=== PATIENT | male | born 1970 | race Caucasian/White ===

== ENCOUNTER → 2016-11-06 | Outpatient (CLI) | payer OTHER ==
[~2016-11-06] MED LIST: "\\\"PREP SPRAY\\\"-TIN4 OZ"; ALDACTONE50 M1 PO; AMLODIPINE BESY10 MG PO; ARTHRITIS PAIN650 M1 PO; ASACOL HD800 MG PO; ASPIRIN EC81 MG PO; ATIVAN 1 MG1 MG PO; ATROVENT I0.5 MG/2.5 INH; B COMPLETE1 EACH; B COMPLETE1 EACH PO; B COMPLEX1 EACH PO; BUMEX; BUMEX1 MG PO; CATAPRES0.1 MG PO; COREG 3.1253.125 MG PO; COREG3.125 MG PO; COUMADIN ** IA3 MG PO; COUMADIN **IA1 MG PO; COUMADIN1 MG PO; COUMADIN2 MG PO; COUMADIN2.5 MG PO; COUMADIN5 MG PO; DELTASONE; DELTASONE20 MG PO; DELZICOL400 MG PO; DILAUDID0.5 MG/0.5 IV; DURAGESIC 25MC25 MCG TRANS; ECOTRIN81 MG PO; FLAGYL500 M1 PO; FLORASTOR250 MG PO; FOLIC ACID1 MG PO; HYOSCYAMINE; K-TAB OR KLOR-10 MEQ PO; KLOR-CON25 MEQ PO; LASIX20 MG PO; LEVAQUIN 750 M750 MG PO; LEVAQUIN750 MG PO; LEVSIN-SL0.125 MG SL; LEVSIN/SL0.125 MG SL; LEXAPRO10 MG PO; LEXAPRO20 MG PO; LIDOCAINE 1% MD20 M1 IDER; LISINOPRIL20 MG PO; LOVENOX 10100 MG/1 M SUB-Q; LOVENOX 8080 MG/0.8 SUB-Q; LOVENOX150 MG/1 M SUB-Q; MAG-OX-400(241400 MG PO; NEUTRA-PHOS (PHO1 EA PO; NICODERM/HABITR21 MG; NICODERM/HABITR21 MG TRANS; NORVASC10 MG PO; NUCYNTA50 MG PO; ONE DAILY1 EACH PO; PENTASA500 MG PO; PEPCID20 MG PO; POTASSIUM CHLO20 ME1 PO; POTASSIUM CHLORIDE; PRINIVIL20 MG PO; PROTONIX40 MG PO; PROVENTIL2.5 MG/0.5 INH; REMERON15 M2 PO; REMERON30 MG PO; THERA-VITE W/ B1 TAB PO; THERAGRAN-M1 TAB PO; THIAMINE HCL100 MG PO; TROSPIUM CHLORI60 MG PO; TYLENOL EXTRA500 MG PO; TYLENOL325 MG PO; ULTRAM50 MG PO; VESICARE10 MG PO; VITAMIN B-1100 M1 PO; ZESTRIL40 MG PO; [UNRECOGNIZED DRUG - OTHER]; [UNRECOGNIZED DRUG - OTHER] PO; [UNRECOGNIZED DRUG - OTHER] PO
== END | disposition disaster alternative care site (69) ==
LOC: GAMB 19:53
DX: F10.229 Alcohol dependence with intoxication, unspecified (principal); R10.9 Unspecified abdominal pain; Z79.899 Other long term (current) drug therapy
CPT/HCPCS: A0425; A0427; J2405; J7030

== ENCOUNTER 2016-11-08 23:14 | Inpatient (IN) | payer OTHER ==
[~2016-11-08] VITALS: Ht 175.3 cm; Wt 93.0 kg
--- NOTE | ~2016-11-08 | CON ---
PATIENT'S NAME: RENE GUERRA [facility] AGE: 46 Y [address] ROOM: [place] [address] LOCATION: [facility] ADMIT DATE: 11/09/2016 Consultation DISCHARGE DATE: FAMILY PHYSICIAN: GENE GARCIA MD ATTENDING PHYSICIAN: KELLI DEL TORO DATE OF CONSULTATION: 11/09/2016 HISTORY OF PRESENT ILLNESS: Rene Guerra is a 46-year-old male who was admitted through emergency room early this morning with history of nausea, vomiting, with coffee-grounds emesis in association with coagulopathy with INR of 5.7. The patient has had history of alcohol abuse and was intoxicated on admission with high serum alcohol levels and INR of 5.7, his hematocrit did drop with hydration and his INR is being corrected. He complains of diffuse abdominal pain and a CT scan of the abdomen was done which is pending. His lipase however was found to be in the 700 range. PAST MEDICAL HISTORY: 1. Alcohol abuse. 2. Previous history of GI bleed and ulcers. 3. Chronic Coumadin therapy for factor V Leiden mutation. 4. History of ulcerative colitis, requiring colectomy and ostomy. ALLERGIES: NONE KNOWN. MEDICATIONS: As noted MAR. SOCIAL HISTORY: Nicotine and alcohol abuse. PHYSICAL EXAMINATION: GENERAL: Middle-aged dishevelled man, in no acute distress. VITAL SIGNS: Afebrile. Vital signs are stable. HEENT: Nonicteric sclerae. Pupils round and reactive. NECK: Supple. CHEST: Clear to auscultation. HEART: S1, S2 normal. ABDOMEN: Soft and nondistended with ostomy in the right upper quadrant. There is also suprapubic catheter. There is mild diffuse tenderness and bowel sounds are absent. EXTREMITIES: No edema. NEUROLOGIC: Awake, alert, appropriate without any focal deficits. PATIENT'S NAME: RENE GUERRA [facility] AGE: 46 Y [address] ROOM: [place] [address] LOCATION: [facility] ADMIT DATE: 11/09/2016 Consultation DISCHARGE DATE: FAMILY PHYSICIAN: GENE GARCIA MD ATTENDING PHYSICIAN: KELLI DEL TORO LABORATORY DATA: Labs are reviewed, showing white cell count of 6.7; hemoglobin 10.2, drifting down; platelets 177,000. Lipase of 712. CT scan of the abdomen pending. ASSESSMENT AND PLAN: A 46-year-old male, presenting with coffee-grounds emesis in the setting of alcohol abuse and associated pancreatitis. The patient does have significant coagulopathy with his Coumadin intake and that needs to be corrected prior to performing any invasive procedures. We will proceed with upper endoscopy as soon as his INR is 1.5 or less. In the interim, he is protected with proton pump inhibitor. Pancreatitis is likely to resolve and does not seem to be severe as per criteria, given sometime. CT scan is pending. Further recommendations as per his clinical course. Thank you for this consult. SAMMY GAMEZ MD AM/katey /[id number] d: 11/09/16 1343 t: 11/11/16 0801, CONSULTATION REPORT
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
--- NOTE | ~2016-11-08 | DS ---
PATIENT'S NAME: RENE GUERRA [facility] AGE: 46 Y [address] [place] [facility] [place], [place] [address] LOCATION: [facility] ADMIT DATE: 11/09/2016 Discharge Summary DISCHARGE DATE: 11/12/2016 FAMILY PHYSICIAN: Jaxson Santiago MD ATTENDING PHYSICIAN: Santana Turk PRIMARY DIAGNOSES: 1. Alcoholic gastritis. 2. Acute blood loss anemia. 3. Alcoholic dependence with intoxication. 4. Supratherapeutic INR. 5. Alcoholic pancreatitis. 6. Factor V Leiden. 7. Ulcerative colitis. 8. Catheter-associated urinary tract infection, present on admission. PRINCIPAL PROCEDURES: Done for the patient, please note, he was transfused 2 units of fresh frozen plasma. LABORATORY DATA: On admission, WBC 7.5, WBC prior to discharge was 3.8; H and H on admission were 8.1 and 23.8, prior to discharge was 8.3 and 24.7, platelet was 149 on discharge. On admission, sodium was 145, prior to discharge was 145, was stable throughout hospital stay; creatinine was 0.6 and was also stable throughout the hospital stay at 0.7; BUN was 10, prior to discharge was 3; glucose was 62, prior to discharge was 87; bicarb was 19 on admission, prior to discharge was ; potassium on admission was 3.7, lowest level obtained was 2.9, was repleted, prior to discharge was 3.7. Phosphorus on admission was 1.3, was repleted, prior to discharge was 2.9. Magnesium on admission was 1.6, was repleted, and prior to discharge was 1.8. Hemoglobin A1c was 5.5. INR on admission was 5.7, prior to discharge was 1.1. UA on admission: Leukocytes were 500, nitrite was positive, wbc 50-100, bacteria was many. Lipase on admission was 712, prior to discharge was 459. Alcohol level 0.32. CRP was 0.35. Drug screen was negative. Procalcitonin was 0.06. Microbiology: Urine from suprapubic catheter was greater than 100,000 Enterobacter and also greater than 100,000 Enterococcus faecalis. IMAGING DATA: CT of abdomen and pelvis, marked fatty infiltration of the liver. Intact appearance of suprapubic Roach catheter, IVC filter, and left lower quadrant ostomy. Interval resolution of soft tissue density material adjacent to the spleen since the previous exam. HOSPITAL COURSE: For history of present illness, please take a look at the H and P, which was done by Dr. Turk. The patient was admitted to Neurotrauma Unit, was managed as a case of acute pancreatitis with possibly gastrointestinal bleed, and the patient was also managed as per the alcohol PATIENT'S NAME: RENE GUERRA [facility] AGE: 46 Y [address] ROOM: [address] [address] LOCATION: [facility] ADMIT DATE: 11/09/2016 Discharge Summary DISCHARGE DATE: 11/12/2016 FAMILY PHYSICIAN: Jaxson Santiago MD ATTENDING PHYSICIAN: Santana Turk detox pathway given his alcohol dependence and presented with alcoholic intoxication. He did not have any active alcohol withdrawal throughout his hospital stay. He did also get a GI consult, and after the patient was evaluated by GI, they recommended an EGD. Given his presentation with supratherapeutic INR, he did also is transfused with 2 units of fresh frozen plasma to reverse his INR, and by the next day of his hospital stay, he was taken into the procedure suite and had an EGD done, which essentially revealed gastritis. So his symptom of melenic stool was probably secondary to alcoholic gastritis, presenting with melena stool. From the first day of his hospital stay, he was started on Protonix drip, which he continued up until the point of discharge. His urine culture ultimately came back positive for Enterococcus as well as Enterobacter as well as Enterococcus faecalis, and he was discharged on p.o. antibiotics for a total of 10 days given his catheter- associated urinary tract infection, which is present on admission. The patient continued to make good clinical progress, and his abdominal pain was controlled with his regular home dose of pain medication, and on the day of discharge, he was stable, vital signs were stable, and he was discharged home. On discharge, the patient was also instructed that he needed to restart his Coumadin and which was going to be bridged with Lovenox, which he is used to given his history of factor V Leiden. MEDICATIONS ON DISCHARGE: 1. Multivitamin 1 tablet p.o. daily. 2. Folic acid 1 mg p.o. daily. 3. Thiamine 100 mg p.o. daily. 4. Tramadol 100 mg p.o. q.4 hours p.r.n. 5. Coumadin 5 mg p.o. daily. 6. Asacol 800 mg p.o. 3 times daily. 7. Coreg 3.125 mg p.o. twice daily. 8. Levaquin 750 mg p.o. daily for 5 days. 9. Florastor 250 mg twice daily for 5 days. 10. Lovenox 90 mg daily subcu, stop if INR is greater than or equal to 1.9. MD JOSIE BONILLA/sherril /[id number] d: 11/12/16 2355 t: 11/17/16 1354, DISCHARGE SUMMARY
--- NOTE | ~2016-11-08 | ER ---
PATIENT'S NAME: RENE GUERRA [facility] AGE: 46 Y [address] ROOM: [place] [address] LOCATION: [facility] ADMIT DATE: 11/08/2016 ER/Outpatient Report DISCHARGE DATE: FAMILY PHYSICIAN: PHYSICIAN, NO ATTENDING PHYSICIAN: Ramana Martinez Admission date and time are documented on the medical record. I saw the patient at 2325 hours. CHIEF COMPLAINT: Abdominal pain, vomiting blood, and alcohol intoxication. HISTORY OF PRESENT ILLNESS: This patient is a 46-year-old male brought to the emergency room by paramedics via ambulance for evaluation. The patient complains of generalized abdominal pain. He is spitting up, coughing up, or vomiting blood. He is acutely intoxicated with alcohol and does have a chronic alcohol abuse problem along with the chronic tobacco abuse problem. He has had illicit drug abuse problems by history. The patient has a history of chronic abdominal pain. He has had a history of ulcerative colitis and is postop colectomy with an ostomy bag. The patient has a suprapubic catheter. 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 The patient has a history of factor Leiden deficiency and chronically anticoagulated with Coumadin. The patient has a long history of depression, hypertension, and gastroesophageal reflux. He has had a past history of GI bleed, DVT, and pulmonary embolism. He has an indwelling IVC filter. No fall or trauma. No recent colds, coughs, flus, fever, chills, or sweats. Denies being lightheaded or dizzy. He has had no syncope. No headache, eyes, ears, nose, throat, neck, or spine pain. Little bit of chest pain, but no shortness of breath. Denies nausea, vomiting, or diarrhea. No joint or muscle swelling, redness, or pain. No skin eruptions or rash. History of depression. No history of TIA, CVA, or seizure disorder. No endocrine problems. HOME MEDICATIONS: See attached medication list. ALLERGIES: NONE. SOCIAL HISTORY: The patient smokes a pack of cigarettes per day. Heavy drinker of alcohol daily. Past history of cocaine use. PAST MEDICAL HISTORY: PATIENT'S NAME: RENE GUERRA [facility] AGE: 46 Y [address] ROOM: [place], [place] [address] LOCATION: ED ADMIT DATE: 11/08/2016 ER/Outpatient Report DISCHARGE DATE: FAMILY PHYSICIAN: PHYSICIAN, NO ATTENDING PHYSICIAN: Ramana Martinez Gastroesophageal reflux, depression, hypertension, upper GI bleed, factor V Leiden deficiency, DVT with PE, chronic abdominal pain, ulcerative colitis, penile gangrene, alcohol and tobacco abuse, history of illicit drug abuse, and chronic anticoagulation with Coumadin. OPERATIONS: Esophagogastroduodenoscopy, colonoscopy, cystoscopy, IVC filter placement, partial penectomy, suprapubic catheter placement, colectomy with ostomy formation, and tonsillectomy. REVIEW OF SYSTEMS: All systems reviewed by me are negative with the exception of those discussed in the history of present illness. PHYSICAL EXAMINATION: VITAL SIGNS: Temperature 99.1, pulse 114, regular, respirations 18, blood pressure 124/82, and O2 sat on room air is 94%. HEAD: Normocephalic. EYES: Extraocular muscles intact. PERRL. EARS: Clear TMs bilaterally. NOSE AND THROAT: Clear. Breath smells of alcoholic beverage. Mucous membranes a little dry. NECK: Negative. SPINE: Negative. LUNGS: Clear. No rales, rhonchi, or wheezes. HEART: Tachy, regular. Pulses palpable. ABDOMEN: Diffuse tenderness. No distention. Bowel tones hypoactive. No organomegaly or abnormal mass palpable. Colostomy is functioning. He had a little bit of bleeding from his suprapubic catheter site. EXTREMITIES: He has multiple bruising. Range of motion full. No deformity. No cyanosis. No pitting peripheral edema. NEURO: The patient is intoxicated. No lateralizing changes. SKIN: Multiple bruising. No abrasions or lacerations. IMAGING DATA: The patient was started on IV banana bag followed by 1 L of normal saline bolus then 150 mL an hour. I did give him IV Protonix 40 mg, IV fentanyl 50 mcg, IV Zofran 4 mg here in the emergency department. EKG showed sinus tach. No acute ST-elevation, ischemic change, or arrhythmia. Chest x-ray showed no acute infiltrate or changes. We will review x-ray with the radiologist. LABORATORY DATA: CMS was normal except for a slightly elevated sodium of 146, low potassium of 3.2, elevated anion gap of 21.2, low calcium of 8.1, and elevated AST of 90. Medical blood alcohol was elevated at 0.382. Amylase was normal at 63. PATIENT'S NAME: RENE GUERRA [facility] AGE: 46 Y [address] ROOM: [place], [place] [address] LOCATION: [facility] ADMIT DATE: 11/08/2016 ER/Outpatient Report DISCHARGE DATE: FAMILY PHYSICIAN: PHYSICIAN, NO ATTENDING PHYSICIAN: Ramana Martinez Lipase was elevated 712. CPK was elevated 589. Aapta-bn-ctuo cardiac enzymes were normal. CRP was 0.35. Procalcitonin was 0.06. White count 6700, 59 segs, 36 lymphs, 3 monos, 1 baso, hemoglobin is 10.2 with hematocrit 29.9, and platelet count 177,000. PTT was 64, pro-time is 17.2 with an INR of 5.7. Lactate was 5.4. Urinalysis is pending. Urine culture was obtained. Blood cultures x2 obtained. All results of the cultures of the blood and urine are pending. IMPRESSION: 1. Diffuse abdominal pain, suspect pancreatitis. The patient does have a history of ulcerative colitis. He had a colectomy with ostomy bag with ostomy formation. The patient's amylase was normal, but lipase was elevated at 712. 2. Coughing up blood. The patient is chronically anticoagulated with Coumadin. His pro-time was elevated at 17.2 with elevated INR of 5.7. 3. Acute alcohol intoxication and alcohol abuse with a medical blood alcohol of 0.382. The patient is a chronic alcoholic. 4. Chronic tobacco abuse. 5. History of deep vein thrombosis, pulmonary embolism, with factor V Leiden deficiency. 6. Hypertension. 7. Depression. 8. History of penile gangrene with partial penectomy and suprapubic cystostomy placement. PLAN: Discussed the patient with Dr. Turk, hospitalist. The patient will be admitted to PCU telemetry for further evaluation and treatment. I did give the patient 5 mg of vitamin K orally in the emergency department along with fluids, Protonix, fentanyl, and Zofran. MD MIREYA ALEXANDER/modl /[id number] d: 11/09/16 014 t: 11/09/16 180, OUTPATIENT REPORT
[~2016-11-08 23:14] MED LIST changes: -CATAPRES0.1 MG PO; -COREG 3.1253.125 MG PO; -COUMADIN **IA1 MG PO; -DURAGESIC 25MC25 MCG TRANS; -LEVAQUIN750 MG PO; -LEVSIN/SL0.125 MG SL; -LOVENOX 10100 MG/1 M SUB-Q; -PENTASA500 MG PO; -THERAGRAN-M1 TAB PO; -TROSPIUM CHLORI60 MG PO
[2016-11-09 00:04] LABS: BASOPHIL # 0.1 K/uL (0.0-0.2); BASOPHIL % 0.8 %; HEMATOCRIT 29.9 % (37.0-53.0); HEMOGLOBIN 10.2 g/dL (12.0-17.0); IMMATURE GRANULOCYTE # 0.1 K/uL (0.0-0.3); IMMATURE GRANULOCYTE % 0.9 %; LYMPHOCYTE # 2.4 K/uL (0.8-4.0); LYMPHOCYTE % 35.8 %; MCH 30.9 pg (27.0-34.0); MCHC 34.1 gm/dL (32.0-36.5); MCV 90.6 fl (83.0-98.0); MONOCYTE # 0.2 K/uL (0.0-1.0); MONOCYTE % 3.2 %; MPV 9.5 fl (9.4-12.4); NEUTROPHIL % 59.3 %; NRBC % 0.3 /100WBC (0-0.00); PLATELET COUNT 177 K/uL (150-450); RDW-CV 13.1 % (11.9-14.6); WBC 6.7 K/uL (4.0-11.0)
[2016-11-09 00:20] LABS: PROTIME 70.2 SECONDS (9.6-11.1); PTT 64 SECONDS (25-32)
[2016-11-09 00:24] LABS: ALBUMIN 3.4 gm/dL (3.5-5.0); ALK PHOS 65 IU/L (33-138); ALT 48 IU/L (12-78); AST 90 IU/L (10-40); BLOOD UREA NITROGEN 11 mg/dL (6-24); CALCIUM 8.1 mg/dL (8.5-10.5); CHLORIDE 105 mMol/L (96-110); CO2 23 mMol/L (22-32); CPK 589 IU/L (35-332); CREATININE 0.8 mg/dL (0.6-1.3); ESTIMATED GFR (MDRD EQUATION) > 60; POTASSIUM 3.2 mMol/L (3.7-5.1); TOTAL BILIRUBIN 0.4 mg/dL (0.0-1.5); TOTAL PROTEIN 6.8 g/dL (6.0-8.4)
[2016-11-09 00:25] LABS: INR - (THERAPEUTIC) 5.7 (0.9-1.1)
[2016-11-09 00:26] LABS: ANION GAP 21.2 (10.0-19.0); SODIUM 146 mMol/L (135-145)
[2016-11-09 00:58] LABS: BILIRUBIN URINE NEGATIVE (NEGATIVE); BLOOD URINE 250 /UL (NEGATIVE); GLUCOSE URINE NEGATIVE (NEGATIVE); KETONE URINE 150 mg/dL (NEGATIVE); LEUKOCYTES URINE 500 /UL (NEGATIVE); NITRITE URINE POSITIVE (NEGATIVE); PROTEIN URINE 100 mg/dL (NEGATIVE); SPEC GRAVITY URINE 1.015 (1.003-1.035); UROBILINOGEN URINE 1 mg/dL (NORMAL)
[2016-11-09 01:00] LABS: COLOR URINE BROWN (YELLOW); TURBIDITY URINE 4+ (CLEAR)
[2016-11-09 01:12] LABS: BACTERIA URINE MANY (NEGATIVE); RBC URINE PACKED FIELD #/HPF (NEGATIVE); WBC URINE 50-100 #/HPF (NEGATIVE)
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
--- NOTE | 2016-11-09 05:10 | NUR ---
Patient arrived on floor by cart from ER at 0205. Pt had came into the ER by ambulane due to abdominal pain. He was spitting up some blood at time of arrival and intoxicated with alcohol. Pt has history of chronic alcohol abuse states that he doesn't know how much he drinks a day but alot probably more than a pack. Pt has a history of ulcerative colitis and has a colostomy. 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 Patient was given vitamin K in ER due to INR pt on blood thinners at home due to history of DVTs. Pt gave banana bag and 1L of NS in ER. IV to L) AC placed in ER. Patient rating pain at 10/10 on arrival to floor morphine given. Waiting for MD to see for further orders.
[2016-11-09 08:16] LABS: BARBITURATE NEGATIVE (NEGATIVE); COCAINE NEGATIVE (NEGATIVE); OPIATES NEGATIVE (NEGATIVE)
[2016-11-09 08:17] LABS: AMPHETAMINE NEGATIVE (NEGATIVE)
[2016-11-09 08:30] LABS: BASOPHIL % 0.4 %; EOSINOPHIL % 0.3 %; HEMOGLOBIN 8.1 g/dL (12.0-17.0); IMMATURE GRANULOCYTE # 0.1 K/uL (0.0-0.3); IMMATURE GRANULOCYTE % 0.9 %; LYMPHOCYTE # 2.5 K/uL (0.8-4.0); LYMPHOCYTE % 32.8 %; MCH 31.4 pg (27.0-34.0); MCV 92.2 fl (83.0-98.0); MONOCYTE # 0.4 K/uL (0.0-1.0); MONOCYTE % 4.9 %; MPV 9.6 fl (9.4-12.4); NEUTROPHIL # (ANC) 4.5 K/uL (1.4-9.0); NEUTROPHIL % 60.7 %; NRBC % 0 /100WBC (0-0.00); RBC 2.58 M/uL (4.00-6.00); RDW-CV 13.3 % (11.9-14.6); WBC 7.5 K/uL (4.0-11.0)
[2016-11-09 08:31] LABS: HEMATOCRIT 23.8 % (37.0-53.0); PLATELET COUNT 139 K/uL (150-450)
[2016-11-09 08:39] LABS: INR - (THERAPEUTIC) 2.9 (0.9-1.1); PROTIME 33.4 SECONDS (9.6-11.1); PTT 45 SECONDS (25-32)
[2016-11-09 08:49] LABS: ALK PHOS 55 IU/L (33-138); ALT 36 IU/L (12-78); ANION GAP 20.7 (10.0-19.0); AST 71 IU/L (10-40); BLOOD UREA NITROGEN 10 mg/dL (6-24); CHLORIDE 109 mMol/L (96-110); CO2 19 mMol/L (22-32); CREATININE 0.6 mg/dL (0.6-1.3); ESTIMATED GFR (MDRD EQUATION) > 60; MAGNESIUM 1.6 mg/dL (1.3-2.6); POTASSIUM 3.7 mMol/L (3.7-5.1); SODIUM 145 mMol/L (135-145); TOTAL PROTEIN 5.7 g/dL (6.0-8.4)
[2016-11-09 08:55] LABS: CALCIUM 7.2 mg/dL (8.5-10.5); PHOSPHORUS 1.3 mg/dL (2.5-4.9); TOTAL BILIRUBIN 0.5 mg/dL (0.0-1.5)
[2016-11-09] MEDS ORDERED: THERAGRAN-M1 TAB PO (10:34)
[2016-11-09] MEDS ORDERED: LEVSIN/SL0.125 MG SL (10:35)
[2016-11-09 12:34] LABS: HEMATOCRIT 23.6 % (37.0-53.0)
[2016-11-09 12:38] LABS: HEMOGLOBIN 7.9 g/dL (12.0-17.0)
[2016-11-09 17:21] LABS: INR - (THERAPEUTIC) 1.4 (0.9-1.1); PROTIME 14.7 SECONDS (9.6-11.1)
--- NOTE | 2016-11-09 19:22 | NUR ---
Significant Event: Patient alert and oriented x3, forgetful at times and asks repetitive questions. Patient was reporting severe abdominal pain throughout morning, doctor notified multiple times. Morphine, fentanyl and dilaudid given with no relief noted. This afternoon patient became increasingly anxious and jittery, ativan given for possible detoxing. Hypertensive, lopressor given with relief noted. All other VSS on 2L O2. EtCO2 monitor ordered and on. Suprapubic catheter patent, cornelius urine noted. Colostomy to lower left abdomen, black stool noted. Patient has extensive bruising throughout body. Given 2 units of FFP today due to high INR. Last INR was 1.4. IV to L) AC infusing D5 1/2 NS at 150 mL/hr and protonix gtt at 10 mL/hr. IV to L) upper arm, saline locked. Follow up: VS q 4 hours. Up with assistance. Clear liquid diet, NPO after midnight for EGD tomorrow. H&H q 4 hours.
[2016-11-09 20:13] LABS: HEMATOCRIT 21.6 % (37.0-53.0)
[2016-11-09 20:14] LABS: HEMOGLOBIN 7.4 g/dL (12.0-17.0)
[2016-11-10 01:56] LABS: HEMATOCRIT 22.6 % (37.0-53.0)
[2016-11-10 01:58] LABS: HEMOGLOBIN 7.7 g/dL (12.0-17.0)
--- NOTE | 2016-11-10 04:35 | NUR ---
Significant Event: A&Ox3. Forgetful at times. Moves all extremities spontaneously. Moderate strength. Lopressor to be given if SBP >150. Given x1 during the night. On tele runs tachy at times. 2L of O2 NC to keeps sats >94%. CO2 monitor. NPO after 0000 for EGD this am. Permits are signed and on the chart. Has a colostomy bag with dark tarry stool. Suprapubic catheter good urine output, urine is cloudy. Generalized bruising throughout body. Detox pathway. Ativan given x1 during the night. Dillaudid and morphine were each given x1 during the night for pain. IV to L) AC running D5 1/2NS at 150ml/hr and protonix gtt at 10ml/hr. IV to L) upper forearm SL. Follow up: EGD today
[2016-11-10 04:52] LABS: BASOPHIL % 0.4 %; EOSINOPHIL # 0.1 K/uL (0.0-0.5); EOSINOPHIL % 0.9 %; HEMATOCRIT 22.9 % (37.0-53.0); IMMATURE GRANULOCYTE % 0.6 %; LYMPHOCYTE % 37.7 %; MCH 31.1 pg (27.0-34.0); MCHC 34.5 gm/dL (32.0-36.5); MCV 90.2 fl (83.0-98.0); MONOCYTE # 0.3 K/uL (0.0-1.0); MONOCYTE % 5.8 %; MPV 9.7 fl (9.4-12.4); NEUTROPHIL # (ANC) 2.9 K/uL (1.4-9.0); NEUTROPHIL % 54.6 %; NRBC % 0.6 /100WBC (0-0.00); PLATELET COUNT 120 K/uL (150-450); RBC 2.54 M/uL (4.00-6.00); WBC 5.4 K/uL (4.0-11.0)
[2016-11-10 04:55] LABS: HEMOGLOBIN 7.9 g/dL (12.0-17.0)
[2016-11-10 04:57] LABS: INR - (THERAPEUTIC) 1.4 (0.9-1.1); PROTIME 14.7 SECONDS (9.6-11.1)
[2016-11-10 05:06] LABS: ALBUMIN 3.1 gm/dL (3.5-5.0); ALK PHOS 58 IU/L (33-138); ALT 34 IU/L (12-78); AST 57 IU/L (10-40); BLOOD UREA NITROGEN 6 mg/dL (6-24); CALCIUM 7.7 mg/dL (8.5-10.5); CHLORIDE 99 mMol/L (96-110); CO2 31 mMol/L (22-32); CREATININE 0.7 mg/dL (0.6-1.3); ESTIMATED GFR (MDRD EQUATION) > 60; SODIUM 141 mMol/L (135-145)
[2016-11-10 05:09] LABS: ANION GAP 13.9 (10.0-19.0); POTASSIUM 2.9 mMol/L (3.7-5.1); TOTAL BILIRUBIN 1.1 mg/dL (0.0-1.5)
[2016-11-10 09:36] LABS: ANION GAP 11.6 (10.0-19.0); BLOOD UREA NITROGEN 5 mg/dL (6-24); CALCIUM 7.8 mg/dL (8.5-10.5); CHLORIDE 102 mMol/L (96-110); CO2 31 mMol/L (22-32); CREATININE 0.6 mg/dL (0.6-1.3); ESTIMATED GFR (MDRD EQUATION) > 60; POTASSIUM 3.6 mMol/L (3.7-5.1); SODIUM 141 mMol/L (135-145)
--- NOTE | 2016-11-10 19:21 | NUR ---
Significant Event: Patient alert and oriented x3. Forgetful. Hypertensive at times, all other VSS on 2L O2. PRN lopressor available. Patient down to endoscopy today for EGD, gastritis noted. Ostomy present to L) abdomen, black tarry stool noted. Suprapubic cath in place and draining cornelius, cloudy urine. Bruising noted throughout body. Reports severe abdominal pain, pain meds helped minimally. IV to L) AC infusing D5 1/2 NS at 150 mL/hr and protonix gtt at 10 mL/hr. IV to L) upper arm, saline locked. Follow up: VS q 4 hours. Up with 1PA. Clear liquid diet, advance as tolerated.
[2016-11-10 20:11] LABS: HEMOGLOBIN 7.9 g/dL (12.0-17.0)
--- NOTE | 2016-11-11 05:17 | NUR ---
Significant Event: A&Ox3 forgetful at times. Up 1 assist to SBA. Pt given ativan x1 during the night for CWA score of 13. On 2L of O2 to keep sats >94%. Regular diet. Zofran given for nausea. Dillaudid and morphine given for pain during the night. Has colostomy bag. Has suprapubic catheter great urine output. Multiple bruises over body. IV to L) forearm running D5 1/2 NS at 150ml/hr. Protonix gtt running. Follow up:
[2016-11-11 07:31] LABS: BASOPHIL % 0.3 %; EOSINOPHIL # 0.1 K/uL (0.0-0.5); EOSINOPHIL % 3.3 %; HEMATOCRIT 23.7 % (37.0-53.0); HEMOGLOBIN 8.1 g/dL (12.0-17.0); IMMATURE GRANULOCYTE % 0.3 %; LYMPHOCYTE # 1.5 K/uL (0.8-4.0); LYMPHOCYTE % 41.3 %; MCH 31.9 pg (27.0-34.0); MCHC 34.2 gm/dL (32.0-36.5); MCV 93.3 fl (83.0-98.0); MONOCYTE # 0.2 K/uL (0.0-1.0); MONOCYTE % 6.1 %; MPV 9.9 fl (9.4-12.4); NEUTROPHIL # (ANC) 1.8 K/uL (1.4-9.0); NEUTROPHIL % 48.7 %; NRBC % 0.6 /100WBC (0-0.00); PLATELET COUNT 125 K/uL (150-450); RBC 2.54 M/uL (4.00-6.00); RDW-CV 13.3 % (11.9-14.6); WBC 3.6 K/uL (4.0-11.0)
[2016-11-11 07:38] LABS: PROTIME 11.3 SECONDS (9.6-11.1)
[2016-11-11 07:40] LABS: INR - (THERAPEUTIC) 1.1 (0.9-1.1)
[2016-11-11 11:35] LABS: CALCIUM 8.3 mg/dL (8.5-10.5); CHLORIDE 103 mMol/L (96-110); CO2 29 mMol/L (22-32); CREATININE 0.8 mg/dL (0.6-1.3); ESTIMATED GFR (MDRD EQUATION) > 60; MAGNESIUM 1.5 mg/dL (1.3-2.6); SODIUM 141 mMol/L (135-145)
[2016-11-11 11:39] LABS: BLOOD UREA NITROGEN 2 mg/dL (6-24); PHOSPHORUS 1.4 mg/dL (2.5-4.9)
--- NOTE | 2016-11-11 14:37 | NUR ---
Introduced self and CM role to Alin. He lives here in [place], and he tells me he lives at home with his mom. I asked if he felt like he was going to be able to return there, he tells me "Yes I should be as far a I know. She is supposed to be bringing me up some cloths later today, but she just hadn't texted me back yet telling me when." I asked if he would be interested in any resources for his alcohol usage to which he tells me he doesn't "need any of that stuff, I am fine just the way I am, there is no issues." I asked if he attended AA meetings or if he was interested in knowing more information about them. He tells me he knows where AA meetings are held and he will go if he wants to. Denies any other questions, needs or concerns. I also asked if he had trouble filling his medications, he once again tells me he doesn't have any issues with filling his medications when he is dismissed. Will continue to follow and assist. Plan for home.
[2016-11-11] MEDS ORDERED: COREG 3.1253.125 MG PO (18:10)
[2016-11-11] MEDS ORDERED: PENTASA500 MG PO (18:10)
[2016-11-11] MEDS ORDERED: PEPCID20 MG PO (18:11)
[2016-11-11] MEDS ORDERED: COUMADIN **IA1 MG PO (18:11)
--- NOTE | 2016-11-11 19:24 | NUR ---
Significant Event:VSS, rates pain 4-10/10. MS 2mg last dose at 1600, Tramadol 100mg last dose at 1530 for c/o abdomen pain. Abdomen soft with bowel sounds, colostomy bag intact with dark brown loose stool. Pt burps bag independently. Protonix gtt continues. Pt received Mg and K-Phos IV, and 80 meq K orally. IV fluids DC'd. Ate 2 meals at 50-75%, tolerates well. CIWAA scale 4, denies headache, anxious at times, slight tremors. Denied need for Ativan. Suprapubic cath intact. Pt refused ADL cares, i.e bath. Up to chair with SBA of 1. IV x 2 in L FA, L upper arm. Numerous bruising noted on back, shoulders, abdomen, legs. Follow up:Protonix changed to oral, monitor.
[2016-11-12 04:18] LABS: BASOPHIL % 0.5 %; EOSINOPHIL # 0.2 K/uL (0.0-0.5); EOSINOPHIL % 4.5 %; HEMATOCRIT 24.7 % (37.0-53.0); HEMOGLOBIN 8.3 g/dL (12.0-17.0); IMMATURE GRANULOCYTE % 0.5 %; LYMPHOCYTE # 1.6 K/uL (0.8-4.0); LYMPHOCYTE % 43.5 %; MCH 31.4 pg (27.0-34.0); MCHC 33.6 gm/dL (32.0-36.5); MCV 93.6 fl (83.0-98.0); MONOCYTE # 0.3 K/uL (0.0-1.0); MONOCYTE % 6.9 %; MPV 9.5 fl (9.4-12.4); NEUTROPHIL # (ANC) 1.7 K/uL (1.4-9.0); NEUTROPHIL % 44.1 %; NRBC % 0 /100WBC (0-0.00); PLATELET COUNT 149 K/uL (150-450); RBC 2.64 M/uL (4.00-6.00); RDW-CV 13.7 % (11.9-14.6); WBC 3.8 K/uL (4.0-11.0)
[2016-11-12 04:29] LABS: ANION GAP 13.7 (10.0-19.0); BLOOD UREA NITROGEN 3 mg/dL (6-24); CALCIUM 8.4 mg/dL (8.5-10.5); CHLORIDE 104 mMol/L (96-110); CO2 28 mMol/L (22-32); CREATININE 0.7 mg/dL (0.6-1.3); ESTIMATED GFR (MDRD EQUATION) > 60; MAGNESIUM 1.8 mg/dL (1.3-2.6); PHOSPHORUS 2.9 mg/dL (2.5-4.9); POTASSIUM 3.7 mMol/L (3.7-5.1); SODIUM 142 mMol/L (135-145)
--- NOTE | 2016-11-12 07:16 | NUR ---
PT REMAINS INTACT WITH NEURO ASSESSMENT. MAIN COMPLAINT IS OF PAIN. MEDICATED WITH TRAMADOL 100 MG X3 THIS SHIFT. ALSO MEDICATED WITH 2MG MORPHINE X3 THIS SHIFT. PT STATES PAIN IS SOMEWHAT RELIEVED. THIS RN ATTEMPTED TO ENCOURAGE PT TO AVOID MORPHINE DUE TO NOT HAVING IT OUTSIDE OF THE HOSPITAL SETTING BUT PATIENT STATES, "BUT I CAN HAVE IT NOW." EDUCATION PROVIDED, DIVERSIONAL ACTIVITIES ATTEMPTED. NADINE PERES RN
[2016-11-12] MEDS ORDERED: FOLIC ACID1 MG PO (12:23)
[2016-11-12] MEDS ORDERED: THIAMINE HCL100 MG PO (12:24)
[2016-11-12] MEDS ORDERED: LOVENOX 10100 MG/1 M SUB-Q (12:26)
[2016-11-12] MEDS ORDERED: LEVAQUIN750 MG PO (12:26)
[2016-11-12] MEDS ORDERED: FLORASTOR250 MG PO (12:26)
--- NOTE | 2016-11-12 12:34 | NUR ---
Call from corrugator operator Becky, that doctors had rounded on Alin and were going to dismiss him to home today. She states she went in to talk with him about this and he wanted her to fax information to [facility] in [place] as "they only had one bed left and his mom was going to take him there tomorrow so this paperwork needed faxed."I let Becky know I would be happy to come up and fax it for her, but she states she will have resource Tiara do it when she returns to the floor. Becky states she just wanted me to know that he was dismissing and that they were faxing that information over to [facility] on behalf of [facility]. No other questions, needs or concerns. Will continue to follow and assist.
[2017-04-29] MEDS ORDERED: TROSPIUM CHLORI60 MG PO (17:11)
[2017-04-29] MEDS ORDERED: CATAPRES0.1 MG PO (17:12)
[2017-04-29] MEDS ORDERED: ZESTRIL40 MG PO (17:12)
[2017-04-30] MEDS ORDERED: DURAGESIC 25MC25 MCG TRANS (10:18)
[2017-04-30] MEDS ORDERED: ULTRAM50 MG PO (10:20)
== END 2016-11-12 13:15 | disposition disaster alternative care site (69) | DRG 438 ==
LOC: GMED 23:14 → GNTU 11-09 01:39
PROVIDERS: Emergency Medicine; Hospitalist; Internal Medicine; Internal Medicine Gastroenterology; ADMIT Internal Medicine
DX: K85.20 Alcohol induced acute pancreatitis without necrosis or infection (principal); K29.21 Alcoholic gastritis with bleeding; D61.818 Other pancytopenia; E87.0 Hyperosmolality and hypernatremia; D68.9 Coagulation defect, unspecified; D68.51 Activated protein C resistance; K51.90 Ulcerative colitis, unspecified, without complications; T83.511A Infection and inflammatory reaction due to indwelling urethral catheter, initial encounter; N39.0 Urinary tract infection, site not specified; D62 Acute posthemorrhagic anemia; I82.502 Chronic embolism and thrombosis of unspecified deep veins of left lower extremity; F10.229 Alcohol dependence with intoxication, unspecified; K70.10 Alcoholic hepatitis without ascites; K27.9 Peptic ulcer, site unspecified, unspecified as acute or chronic, without hemorrhage or perforation; K21.9 Gastro-esophageal reflux disease without esophagitis; B95.2 Enterococcus as the cause of diseases classified elsewhere; B96.89 Other specified bacterial agents as the cause of diseases classified elsewhere; E16.2 Hypoglycemia, unspecified; F32.9 Major depressive disorder, single episode, unspecified; F17.210 Nicotine dependence, cigarettes, uncomplicated; S20.221A Contusion of right back wall of thorax, initial encounter; S20.222A Contusion of left back wall of thorax, initial encounter; S40.012A Contusion of left shoulder, initial encounter; S40.011A Contusion of right shoulder, initial encounter; S20.02XA Contusion of left breast, initial encounter; S80.11XA Contusion of right lower leg, initial encounter; S30.1XXA Contusion of abdominal wall, initial encounter; Y04.0XXA Assault by unarmed brawl or fight, initial encounter; Z90.49 Acquired absence of other specified parts of digestive tract; Z93.1 Gastrostomy status; Z79.01 Long term (current) use of anticoagulants
CPT/HCPCS: C9113; G0480; J1170; J2060; J2270; J2405; J3010; J3411; J3475; J3480; J7030; J7040; J7050; P9017; Q9967

== ENCOUNTER → 2016-11-08 | Outpatient (CLI) | payer OTHER | END | disposition disaster alternative care site (69) | LOC: GAMB 22:51 | DX: R10.84 Generalized abdominal pain (principal); F10.20 Alcohol dependence, uncomplicated; Z79.899 Other long term (current) drug therapy | CPT/HCPCS: A0425; A0429 ==

== ENCOUNTER 2016-12-20 15:26 | Emergency (ER) | payer OTHER ==
--- NOTE | ~2016-12-20 | ER ---
PATIENT'S NAME: RENE GUERRA [facility] AGE: 46 Y [address] ROOM: [place] [address] LOCATION: ED ADMIT DATE: 12/20/2016 ER/Outpatient Report DISCHARGE DATE: 12/20/2016 FAMILY PHYSICIAN: Jaxson Santiago MD ATTENDING PHYSICIAN: Will Major CHIEF COMPLAINT: Elevated INR. HISTORY OF PRESENT ILLNESS: The patient presented to his clinic for routine evaluation of INR. It was found to be markedly elevated at greater than 8. He was informed to come in for a shot of vitamin K and was seen to come here for that evaluation. He denies any other issues. Denies any changes in his diet or alcohol intake and continues to drink "many beers a today." PAST MEDICAL HISTORY: Documented on the record. SOCIAL HISTORY: Documented on the record. MEDICATIONS: Documented on the record. ALLERGIES: DOCUMENTED ON THE RECORD. REVIEW OF SYSTEMS: All systems reviewed and negative except as noted in the HPI. PHYSICAL EXAMINATION: VITAL SIGNS: Blood pressure 122/84, pulse is 85, respiratory rate is 16, temp 98.3, and SpO2 is 98% on room air. Pain is a 2/10, baseline. GENERAL: Disheveled male, in no obvious pain or distress, sitting upright on the exam table. HEENT: Normocephalic, atraumatic. Eyes are PERRL. Oropharynx is clear. Teeth in poor repair. NECK: Supple. Trachea is midline. CHEST: Heart is regular rate and rhythm with no murmurs. LUNGS: Clear to auscultation bilateral grossly. EXTREMITIES: With no obvious abnormalities. SKIN: Warm, dry, and intact. LABS AND X-RAYS: PATIENT'S NAME: RENE GUERRA [facility] AGE: 46 Y [address] ROOM: [place] [address] LOCATION: ED ADMIT DATE: 12/20/2016 ER/Outpatient Report DISCHARGE DATE: 12/20/2016 FAMILY PHYSICIAN: Jaxson Santiago MD ATTENDING PHYSICIAN: Will Major None. IMPRESSION: Supratherapeutic INR without active bleeding. EMERGENCY DEPARTMENT COURSE: The patient seen and evaluated. I did contact the patient's primary care provider Dr. Santiago. We will administer 2.5 mg of vitamin K. He will then be discharged. He will follow up with Dr. Santiago on Friday for recheck of his INR and he is instructed not to take his warfarin through the weekend. MD EUNICE KHAN/katey /[id number] d: 12/21/16719 t: 01/08/17 0853, OUTPATIENT REPORT
[~2016-12-20 15:26] MED LIST changes: +COREG 3.1253.125 MG PO; +COUMADIN **IA1 MG PO; +LEVAQUIN750 MG PO; +LEVSIN/SL0.125 MG SL; +LOVENOX 10100 MG/1 M SUB-Q; +PENTASA500 MG PO; +THERAGRAN-M1 TAB PO
[2017-04-29] MEDS ORDERED: TROSPIUM CHLORI60 MG PO (17:11)
[2017-04-29] MEDS ORDERED: ZESTRIL40 MG PO (17:12)
[2017-04-29] MEDS ORDERED: CATAPRES0.1 MG PO (17:12)
[2017-04-30] MEDS ORDERED: DURAGESIC 25MC25 MCG TRANS (10:18)
[2017-04-30] MEDS ORDERED: ULTRAM50 MG PO (10:20)
== END 2016-12-20 16:08 | disposition disaster alternative care site (69) ==
LOC: GMED 15:26
DX: R79.1 Abnormal coagulation profile (principal)

== ENCOUNTER 2017-03-25 15:57 | Emergency (ER) | payer OTHER ==
[2017-04-29] MEDS ORDERED: TROSPIUM CHLORI60 MG PO (17:11)
[2017-04-29] MEDS ORDERED: CATAPRES0.1 MG PO (17:12)
[2017-04-29] MEDS ORDERED: ZESTRIL40 MG PO (17:12)
[2017-04-30] MEDS ORDERED: DURAGESIC 25MC25 MCG TRANS (10:18)
[2017-04-30] MEDS ORDERED: ULTRAM50 MG PO (10:20)
== END 2017-03-25 16:30 | disposition disaster alternative care site (69) ==
LOC: GMED 15:57
DX: Z53.21 Procedure and treatment not carried out due to patient leaving prior to being seen by health care provider (principal)

== ENCOUNTER 2017-04-28 15:14 | Emergency (ER) | payer OTHER ==
--- NOTE | ~2017-04-28 | ER ---
PATIENT'S NAME: RENE GUERRA [facility] AGE: 46 Y [address] ROOM: [place] [address] LOCATION: ED ADMIT DATE: 04/28/2017 ER/Outpatient Report DISCHARGE DATE: 04/28/2017 FAMILY PHYSICIAN: Jaxson Santiago MD ATTENDING PHYSICIAN: Will Major Time of Arrival: 1541 hours. Time of Evaluation: 1541 hours. CHIEF COMPLAINT: Abdominal pain. HISTORY OF PRESENT ILLNESS: The patient states he has had generalized abdominal pain for the last month. He has been having problems with nausea and vomiting on a daily basis. States he has had fever and chills off and on. He said he had a suprapubic catheter changed on Sunday April 23, [address] Munoz. States he has been drinking beer today to try and get rid of his pain. States he has a prescription for tramadol but was not able to get it filled today. ALLERGIES: NO KNOWN ALLERGIES. CURRENT MEDICATIONS: On his chart and were reviewed by me. 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 PAST SURGICAL HISTORY: IVC filter, partial penectomy, suprapubic cath, tonsillectomy, and colectomy. SOCIAL HISTORY: Smokes a pack per day and has for the past 30 years. Denies use of drugs. Drinks alcohol on a regular basis. He states his last drink today was at noon. He has had 7 beers since this morning. REVIEW OF SYSTEMS: All negative other than those mentioned in the HPI. PHYSICAL EXAMINATION: VITAL SIGNS: He weighs 90.6 kg, blood pressure is 150/94, pulse of 94, PATIENT'S NAME: RENE GUERRA [facility] AGE: 46 Y [address] ROOM: [place] [address] LOCATION: [facility] ADMIT DATE: 04/28/2017 ER/Outpatient Report DISCHARGE DATE: 04/28/2017 FAMILY PHYSICIAN: Jaxson Santiago MD ATTENDING PHYSICIAN: Will Major respirations 24, temperature of 97.9 tympanic, and O2 saturation is 96% on room air. GENERAL: He is awake, alert, and oriented x4. SKIN: [place], warm, and dry. RESPIRATIONS: Even and nonlabored. Lung sounds are clear throughout. HEART: Regular rate and rhythm. ABDOMEN: Soft and nondistended. Bowel sounds are present. He is very tender in the right lower and right upper quadrant areas. EMERGENCY ROOM COURSE: Saline lock was initiated. Fluids of normal saline were started at a wide- open rate. He was given Zofran 4 mg IV. LABORATORY DATA AND X-RAYS: Lab work was drawn. His CBC showed a white count of 3.9, hemoglobin is 13.7, hematocrit of 39.6. Pro-time is 28.5, INR is 2.69. Chem panel: Sodium is 132, potassium is 3.9, chloride of 97. His alkaline phosphatase is 141, AST is 534, ALT is 362, his total bilirubin is 0.6. His amylase is 54 with a lipase of 646. Lactate is 2.4. Fluids are infusing. Procalcitonin is negative. H. pylori is negative. The patient continued to complain of discomfort. He was given fentanyl 50 mcg IV. After that was given, he wanted to leave AMA and refused to stay to have a CT scan done, refused to stay to have any more tests, evaluated. IMPRESSION: Abdominal pain. PLAN: The patient completed paperwork and left AMA. PALOMA GUEVARA APRN FOR MD LENORE KHAN/katey /[id number] d: 04/29/17 0026 t: 05/07/17 1056, OUTPATIENT REPORT
[2017-04-28 16:05] LABS: BASOPHIL # 0.1 K/uL (0.0-0.2); BASOPHIL % 1.3 %; EOSINOPHIL # 0.1 K/uL (0.0-0.5); EOSINOPHIL % 2.1 %; HEMATOCRIT 39.6 % (37.0-53.0); HEMOGLOBIN 13.7 g/dL (12.0-17.0); IMMATURE GRANULOCYTE % 0.3 %; LYMPHOCYTE # 2.1 K/uL (0.8-4.0); LYMPHOCYTE % 53.5 %; MCH 28.2 pg (27.0-34.0); MCHC 34.6 gm/dL (32.0-36.5); MCV 81.6 fl (83.0-98.0); MONOCYTE # 0.4 K/uL (0.0-1.0); MONOCYTE % 10.3 %; MPV 9.2 fl (9.4-12.4); NEUTROPHIL # (ANC) 1.3 K/uL (1.4-9.0); NEUTROPHIL % 32.5 %; NRBC % 0 /100WBC (0-0.00); PLATELET COUNT 186 K/uL (150-450); RDW-CV 22.9 % (11.9-14.6); WBC 3.9 K/uL (4.0-11.0)
[2017-04-28 16:07] LABS: RBC 4.85 M/uL (4.00-6.00)
[2017-04-28 16:18] LABS: INR - (THERAPEUTIC) 2.69 (0.92-1.07); PROTIME 28.5 SECONDS (9.8-11.4); PTT 43 SECONDS (25-32)
[2017-04-28 16:24] LABS: ALBUMIN 3.6 gm/dL (3.5-5.0); ALK PHOS 141 IU/L (33-138); ANION GAP 12.9 (10.0-19.0); BLOOD UREA NITROGEN 5 mg/dL (6-24); CALCIUM 8.5 mg/dL (8.5-10.5); CHLORIDE 97 mMol/L (96-110); CO2 26 mMol/L (22-32); CREATININE 0.9 mg/dL (0.6-1.3); POTASSIUM 3.9 mMol/L (3.7-5.1); SODIUM 132 mMol/L (135-145); TOTAL BILIRUBIN 0.6 mg/dL (0.0-1.5); TOTAL PROTEIN 7.4 g/dL (6.0-8.4)
[2017-04-28 16:25] LABS: ALT 362 IU/L (12-78); AST 534 IU/L (10-40)
[2017-04-29] MEDS ORDERED: TROSPIUM CHLORI60 MG PO (17:11)
[2017-04-29] MEDS ORDERED: CATAPRES0.1 MG PO (17:12)
[2017-04-29] MEDS ORDERED: ZESTRIL40 MG PO (17:12)
[2017-04-30] MEDS ORDERED: DURAGESIC 25MC25 MCG TRANS (10:18)
[2017-04-30] MEDS ORDERED: ULTRAM50 MG PO (10:20)
== END 2017-04-28 16:54 | disposition disaster alternative care site (69) ==
LOC: GMED 15:14
PROVIDERS: Nurse Practitioner Family
DX: R10.84 Generalized abdominal pain (principal); F17.210 Nicotine dependence, cigarettes, uncomplicated; Z86.718 Personal history of other venous thrombosis and embolism; Z79.01 Long term (current) use of anticoagulants; Z86.711 Personal history of pulmonary embolism; I10 Essential (primary) hypertension; Z98.890 Other specified postprocedural states
CPT/HCPCS: G0480; J2405; J3010; J7030